=== PATIENT | female | born 2000 | race Caucasian/White ===

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

== ENCOUNTER 2019-01-06 01:32 | Emergency (ER) | payer OTHER ==
[~2019-01-06] VITALS: Ht 167.6 cm; Wt 81.8 kg
[~2019-01-06 01:32] MED LIST changes: +ACET1TAB55 PO; +MOTR200T44 PO
[2019-01-06] MEDS: ACETAMINOPHEN TAB 650MG DOSE (2X325MG) PO ONE (02:46)
[2019-01-06] MEDS: NS 1,000 ML IV ONE (02:46)
[2019-01-06] MEDS ORDERED: AMOX125C PO (02:51)
[2019-01-06 02:53] LABS: HEMOGLOBIN 13.7 g/dl (12.0-15.5); MEAN CORPUSCULAR HEMOGLOBIN 28.4 pg (27.0-33.0); MEAN CORPUSCULAR HGB CONC 32.6 g/dl (32.0-36.5); MEAN CORPUSCULAR VOLUME 87.1 fl (80.0-96.0); PLATELET COUNT, AUTOMATED 244 10^3/uL (150-450); RED BLOOD COUNT 4.82 10^6/uL (4.00-5.40); WHITE BLOOD COUNT 7.2 10^3/uL (4.0-10.0)
[2019-01-06 03:29] LABS: BLOOD UREA NITROGEN 16 MG/DL (7-18); CALCIUM LEVEL 8.3 MG/DL (8.5-10.1); CARBON DIOXIDE LEVEL 26 MEQ/L (21-32); CHLORIDE LEVEL 104 MEQ/L (98-107); CREATININE FOR GFR 0.84 MG/DL (0.55-1.30); GLUCOSE, FASTING 86 MG/DL (70-100); POTASSIUM SERUM 4.2 MEQ/L (3.5-5.1); SODIUM LEVEL 138 MEQ/L (136-145)
[2019-01-06 04:08] LABS: ATYPICAL LYMPH 12 % (0-5); EOSINOPHILS 2 % (0-3); LYMPHOCYTES 29 % (16-44); METAMYELOCYTES 1 % (0-0); MONOCYTES 5 % (0-5); NEUTROPHILS 51 % (28-66); PLATELET ESTIMATE NORMAL (NORMAL)
[2019-01-06 05:40] VITALS: BP 139/62
[2019-01-06] MEDS: KETOROLAC 30 MG/ML VIAL (J1885) IV ONE (06:21)
== END 2019-01-06 06:29 | disposition home or self-care (01) ==
LOC: M ED 01:32
DX: B27.90 Infectious mononucleosis, unspecified without complication (principal); R53.81 Other malaise; R11.2 Nausea with vomiting, unspecified; J45.909 Unspecified asthma, uncomplicated; Z79.899 Other long term (current) drug therapy
CPT/HCPCS: 80048; 85025; 96360; 96361; 96374; 99284; J1885

== ENCOUNTER → 2019-01-25 | Outpatient (CLI) | payer OTHER ==
[~2019-01-25] MED LIST changes: +AMOX125C PO
[2019-01-25 14:56] LABS: HCG, SERUM QUALITATIVE NEGATIVE (NEGATIVE)
[2019-01-25 15:01] LABS: FREE T4 0.93 NG/DL (0.78-1.33)
[2019-01-25 15:04] LABS: FOLLICLE STIMULATING HORMONE 4.5 mIU/mL; LUTEINIZING HORMONE 7.7 mIU/mL
== END ==
LOC: M SMT 08:50
PROVIDERS: ATTEND Advanced Practice Midwife
DX: N92.6 Irregular menstruation, unspecified (principal); Z31.61 Procreative counseling and advice using natural family planning

== ENCOUNTER → 2019-01-29 | Outpatient (CLI) | payer OTHER ==
[2019-02-04 08:20] LABS: INSULIN FREE 19 uU/mL (.); INSULIN TOTAL2 19 uU/mL (.)
== END ==
LOC: M LAB 08:17
PROVIDERS: ATTEND Advanced Practice Midwife
DX: Z31.61 Procreative counseling and advice using natural family planning (principal); N92.6 Irregular menstruation, unspecified; R63.5 Abnormal weight gain

== ENCOUNTER → 2019-02-14 | Outpatient (REF) | payer OTHER ==
[2019-02-14 20:10] LABS: CHLAMYDIA DNA AMPLIFICATION NEGATIVE (NEGATIVE); GC DNA AMPLIFICATION NEGATIVE (NEGATIVE)
== END ==
LOC: M LAB REF 17:07
PROVIDERS: ATTEND Advanced Practice Midwife
DX: Z11.3 Encounter for screening for infections with a predominantly sexual mode of transmission (principal)

== ENCOUNTER → 2019-04-04 | Outpatient (CLI) | payer OTHER | LOC: M LAB 10:46 | PROVIDERS: ATTEND Advanced Practice Midwife | DX: N92.6 Irregular menstruation, unspecified (principal) ==

== ENCOUNTER → 2019-08-06 | Outpatient (REF) | payer OTHER | LOC: M LAB REF 20:08 | PROVIDERS: ATTEND Physician Assistant | DX: N39.0 Urinary tract infection, site not specified (principal) ==

== ENCOUNTER → 2019-09-21 | Outpatient (REF) | payer OTHER | LOC: M LAB REF 15:37 | PROVIDERS: ATTEND Nurse Practitioner Family | DX: N39.0 Urinary tract infection, site not specified (principal) ==